=== PATIENT | male | born 1950 | race Caucasian/White ===

== ENCOUNTER 2023-03-12 17:53 | Emergency (ER) | payer MEDICARE ==
[2023-03-12 18:17] VITALS: RESP 18; TEMP 98
[2023-03-12] MEDS ORDERED: CIPROFLOXACIN-DEXAMETH 0.3-0.1% DROPS 7.5 ML BTL LEFT EAR STA (19:02)
[2023-03-12] MEDS ORDERED: CARBAMIDE PEROXIDE 6.5% DROPS 15 ML BTL LEFT EAR STA (19:04)
--- NOTE | 2023-03-12 19:07 | ED ---
ENT HPI - General Chief complaint: ENT Stated complaint: L ear bleeding Time Seen by Provider: 03/12/23 18:49 Source: patient, RN notes reviewed Mode of arrival: ambulatory Limitations: no limitations - History of Present Illness Initial comments: This is a 73-year-old male who presents to the emergency department for bleeding from the left ear. States that earlier today he was stung by a bee in the face and on the left hand. He went to the store to buy Benadryl, and approximately 30 minutes later, he started to develop bleeding from the left ear. He was otherwise not doing anything before this occurred. Denies sticking anything in his ear or scratching it. He takes a baby aspirin daily but no other blood thinners. He was having a lot of difficulty getting the bleeding to stop. Denies any pain associated with this, but states that it does feel like his ear is clogged with blood, causing some muffling with his hearing. Denies any fevers, chills, sore throat, cough, dyspnea, chest pain, palpitations, abdominal pain, nausea, vomiting, diarrhea, back pain, or headaches. MD complaint: other (Bleeding left ear) - Related Data Allergies Allergy/AdvReac Type Severity Reaction Status Date / Time No Known Allergies Allergy Verified 03/12/23 18:17 Review of Systems ROS Statement: Those systems with pertinent positive or pertinent negative responses have been documented in the HPI. ROS Other: All systems not noted in ROS Statement are negative. Past Medical History Past Medical History: Hypertension History of Any Multi-Drug Resistant Organisms: None Reported Additional Past Surgical History / Comment(s): heart valve replacement Past Psychological History: No Psychological Hx Reported Smoking Status: Current some day smoker Past Alcohol Use History: Daily Past Drug Use History: None Reported General Exam Limitations: no limitations General appearance: alert, in no apparent distress Head exam: Present: atraumatic, normocephalic, normal inspection ENT exam: Present: other (Copious amount of dried blood within the left ear canal. The cone of light is visualized and the TM appears intact.) Respiratory exam: Present: normal lung sounds bilaterally. Absent: respiratory distress, wheezes, rales, rhonchi, stridor Cardiovascular Exam: Present: regular rate, normal rhythm, normal heart sounds. Absent: systolic murmur, diastolic murmur, rubs, gallop, clicks Neurological exam: Present: alert, oriented X3, CN II-XII intact Psychiatric exam: Present: normal affect, normal mood Skin exam: Present: warm, dry, intact, normal color. Absent: rash Course Vital Signs 03/12/23 03/12/23 18:12 20:03 Temperature 98 F Pulse Rate 67 59 L Respiratory 18 18 Rate Blood Pressure 171/96 145/74 O2 Sat by Pulse 97 97 Oximetry Medical Decision Making - Medical Decision Making This is a 73-year-old male who presents to the emergency department for bleeding from the left ear. Was pt. sent in by a medical professional or institution? @ -No Did you speak to anyone other than the patient for history? @ -No Did you review nursing and triage notes? @ -Yes, and I agree, it is accurate with regards to the patient's symptoms. Were old charts reviewed? @ -No Differential Diagnosis? @ -Differential Ear Bleeding: Injury, tumor, infection, this is not meant to be an all-inclusive list. EKG interpreted by me (3pts min.)? @ -Not obtained X-rays interpreted by me (1pt min.)? @ -Not obtained CT interpreted by me (1pt min.)? @ -Not obtained U/S interpreted by me (1pt. min.)? @ -Not obtained What testing was considered but not performed? (CT, X-rays, U/S, labs)? Why? @ -None What meds were considered but not given? Why? @ -None Did you discuss the management of the patient with other professionals? @ -No Did you reconcile home meds? @ -No Was smoking cessation discussed for >3mins.? @ -No Was critical care preformed (if so, how long)? @ -No Were there social determinants of health that impacted care today? How? (Homelessness, low income, unemployed, alcoholism, drug addiction, transportation, low edu. Level, literacy, decrease access to med. care, prison, rehab)? @ -No Was there de-escalation of care discussed even if they declined? (Discuss DNR or withdrawal of care, Hospice)? @ -No What co-morbidities impacted this encounter? (DM, HTN, Smoking, COPD, CAD, Cancer, CVA, Hep., AIDS, mental health diagnosis, sleep apnea, morbid obesity)? @ -None Was patient admitted / discharged? @ -Discharged. On physical exam, there was a large amount of dried blood in the ear canal. Because of this it made it difficult to determine if there were any lacerations in the ear or determine any other sources of the bleeding. The portion of the TM I could visualize was intact. We initially put some deep Debrox drops in the patient's ear canal to help remove some of the blood. This was effective in getting some of the blood to displace, however I was still unable to visualize a source of the bleeding. A bottle of Ciprodex drops was provided to use as infectious prophylaxis for any potential injury or infection that could not be identified at this time. He is advised to use 4 drops to the left ear twice daily for a week. Information for ENT follow-up provided. He is also instructed to contact them for a follow-up appointment. Undiagnosed new problem with uncertain prognosis? @ -None Drug Therapy requiring intensive monitoring for toxicity (Heparin, Nitro, Insulin, Cardizem)? @ -None Were any procedures done? @ -None Diagnosis/symptom? @ -Blood in the left ear canal Acute, or Chronic, or Acute on Chronic? @ -Acute Uncomplicated (without systemic symptoms) or Complicated (systemic symptoms)? @ -Uncomplicated Side effects of treatment? @ -None Exacerbation, Progression, or Severe Exacerbation] @ -Not applicable Poses a threat to life or bodily function? @ -No Return precautions reviewed in depth, the patient is instructed to return to the emergency department with any new, worsening, or concerning symptoms. Patient verbalized understanding. This case was discussed in detail with the attending ED physician, Dr. Grimaldo. Presentation, findings, and treatment plan discussed in detail as well. Disposition Clinical Impression: Blood in left ear canal Disposition: HOME SELF-CARE Additional Instructions: Return to the emergency department with any new, worsening, or concerning symptoms. Use the Ciprodex eardrops as 4 drops to the left ear twice daily for 7 days. Contact ENT as listed below for a follow-up appointment and reevaluation of the blood in your ear canal. Follow up with your primary care provider in 1-2 days. Is patient prescribed a controlled substance at d/c from ED?: No Referrals: Michael Jimenez MD [Primary Care Provider] - 1-2 days Edgar Franco MD [STAFF PHYSICIAN] - 1-2 days
[2023-03-12 20:04] VITALS: BP 145/74; PULSE 59
== END 2023-03-12 20:05 | disposition home or self-care (01) ==
LOC: EC 17:53
DX: H92.22 Otorrhagia, left ear (principal); I10 Essential (primary) hypertension; F17.200 Nicotine dependence, unspecified, uncomplicated
CPT/HCPCS: 99282

== ENCOUNTER → 2023-08-27 | Outpatient (CLI) | payer MEDICARE ==
[2023-08-27 11:49] LABS: African American GFR (CKD) >90 (>60 ml/min/1.73 sqM); Blood Urea Nitrogen 18 mg/dL (9-20); Non-African American GFR(CKD) 79 (>60 ml/min/1.73 sqM)
--- NOTE | 2023-09-04 08:13 | CT ---
EXAMINATION TYPE: CT chest w con CT DLP: 487 mGycm, Automated exposure control for dose reduction was used. DATE OF EXAM: 08/27/2023 12:52 PM COMPARISON: None. . CLINICAL INDICATION:Male, 73 years old with history of R04.2; PHH, hemoptysis TECHNIQUE: Multiple axial images were obtained through the chest. Sagittal and coronal reformats were created for review. Contrast used:100ml mL of Isovue 300 with IV Contrast (None if empty) Oral contrast used: (None if empty) FINDINGS: LUNGS/ PLEURA: Small opacity suggesting subsegmental atelectasis in the lingula. No airspace consolid ation, pleural effusion, or pneumothorax. No evidence of mass or significant nodularity. AIRWAY: Central airways are patent. LOWER NECK: Tiny hypodense nodule in the anterior left thyroid lobe smaller nodularity on the right c annot be excluded. MEDIASTINUM: Mildly enlarged right precarinal node with a short axis 1.3 cm. Few other borderline pro minent and nonenlarged nodes.. HEART: Mild cardiomegaly. Moderate to severe coronary artery calcification and/or stents. No apprecia ble pericardial effusion. Radiodensities suggest prosthetic aortic and mitral valves, possibly calcif ications. VASCULATURE: Moderate atherosclerotic calcifications of the aorta and branches. Typical three-vessel arch is shown.. Ascending aorta is fusiform in shape with maximal diameter 4.1 CM, descending is 2.6 CM. Aorta is considered aneurysmal in its ascending segment. Pulmonary trunk measures 2.85 CM. Pulmonary trunk is normal in size. Grossly preserved enhancement of the pulmonary arteries, in the limits of non-CTA exam. SOFT TISSUES/LYMPH NODES: Mild/moderate bilateral gynecomastia. No axillary adenopathy. UPPER ABDOMEN: No significant findings. MUSCULOSKELETAL: No acute osseous abnormalities. Post sternotomy changes with wires. Mild to moderate disc degeneration changes are present throughout the thoracolumbar spine. Small patch of sclerosis a t the anterior inferior aspect of the T6 vertebral body adjacent to degenerated disc, is probably on a degenerative basis. Otherwise no blastic or lytic lesions are seen. IMPRESSION: 1. A mildly enlarged and some borderline and nonenlarged mediastinal nodes are present, of uncertain significance but favored to be reactive. 2. Mild cardiomegaly with probable aortic and mitral valve prostheses. Moderate to heavy calcificati on of the coronary arteries. 3. Lungs are clear. No evidence of pneumonia or CHF. 4. A 4.1 cm fusiform ascending thoracic aortic aneurysm.
== END | disposition home or self-care (01) ==
LOC: RADCTMAIN 11:07
PROVIDERS: ATTEND Internal Medicine Critical Care Medicine
DX: I25.10 Atherosclerotic heart disease of native coronary artery without angina pectoris (principal); R04.2 Hemoptysis; R59.0 Localized enlarged lymph nodes; I71.21 Aneurysm of the ascending aorta, without rupture; I51.7 Cardiomegaly
CPT/HCPCS: 82565; 84520; 71260; 36415; Q9967